=== PATIENT | male | born 1950 | race Caucasian/White ===

== ENCOUNTER 2016-09-27 08:43 | Day surgery (SDC) | payer BC, MEDICARE ==
[2016-09-26 10:18] VITALS: BMI 33.4
[~2016-09-27 08:43] MED LIST: LACTATED RINGERS 1,000 ML IV SCH; LIDOCAINE 1% 20 ML VIAL (10MG/ML) FOR IV START INTRADERMA PRN
[2016-09-27 09:01] VITALS: RESP 16; TEMP 97.3
[2016-09-27] MEDS ORDERED: LIDOCAINE 1% INJ 10MG/ML (20 ML MDV) ONE (10:13)
[2016-09-27] MEDS ORDERED: PROPOFOL 10 MG/ML 20 ML VIAL IV ONE (10:13)
--- NOTE | 2016-09-27 10:47 | P.PCN ---
Date of Procedure: 09/27/16 Preoperative Diagnosis: Postoperative Diagnosis: Procedure(s) Performed: Procedure: Colonoscopy and biopsy. Preoperative diagnosis: History of colon cancer and elevated CEA. Postoperative diagnosis: 1. Prominence and some friability at the area of the anastomosis on the right side, unlikely to be neoplastic, biopsies obtained. 2. Low-grade internal hemorrhoids, otherwise, exam within normal limits. Preparation: HalfLytely prep. Sedation: Was provided by anesthesia. Brief clinical history: The patient is a 66-year-old male who was diagnosed in May 2015 with adenocarcinoma of the cecum. He underwent right colectomy and completed chemotherapy. The patient was noted to have slight elevation in his CEA on her recent follow-up exam. This would be his first colonoscopy since surgery last year. Procedure: With the patient on his left lateral decubitus position and after informed consent and adequate sedation, the perianal area was inspected and it did not show any fissures or fistulas. There were no masses felt on digital rectal examination. The Olympus CFQ 160L video colonoscope was then inserted in the rectum in the usual fashion and advanced to the right colon. The area of the anastomosis was noted. There was some prominence and friability at the area of the anastomosis, unlikely to be neoplastic, however, I obtained multiple biopsies. Elsewhere, the mucosa appeared healthy. No polyps or tumors were seen or any obvious diverticular disease. I retroflexed thre endoscope in the rectum before the endoscope was withdrawn. Low-grade internal hemorrhoids were noted but there was no bleeding. The patient tolerated the procedure well. Plan: The patient was reassured. Discussed dietary measures and local care for hemorrhoids. Will await biopsy results and make further plans based on his course and biopsy results. He will follow up with you as planned. Implants: Indications for Procedure: Operative Findings: Description of Procedure:
[2016-09-27 10:59] VITALS: BP 147/70; PULSE 54
== END 2016-09-27 11:26 | disposition home or self-care (01) ==
LOC: ORWHC2ENDO 08:43
DX: K52.9 Noninfective gastroenteritis and colitis, unspecified (principal); Z98.0 Intestinal bypass and anastomosis status; Z85.038 Personal history of other malignant neoplasm of large intestine; I10 Essential (primary) hypertension; E78.5 Hyperlipidemia, unspecified; J45.909 Unspecified asthma, uncomplicated; K21.9 Gastro-esophageal reflux disease without esophagitis; Z79.899 Other long term (current) drug therapy; K64.8 Other hemorrhoids
CPT/HCPCS: 88305; 45380; J2001; J2704; 83735

== ENCOUNTER → 2016-10-13 | Outpatient (CLI) | payer MEDICARE ==
--- NOTE | 2016-10-14 11:47 | PE ---
EXAMINATION TYPE: PET CT fusion skull to thigh DATE OF EXAM: 10/13/2016 COMPARISON: CT abdomen pelvis 03/07/2016 Prior PET/CT: 06/25/2015 HISTORY: Colon cancer TECHNIQUE: Following the intravenous administration of 14.55 mCi of F-18 FDG, whole body images are performed from the skull base to the midthigh. Images are reviewed on the computer in the coronal, a xial, and sagittal planes. Reconstructed rotating images are created on independent workstation and reviewed on the computer. A localization and attenuation correction CT is performed in conjunction with the PET scan. DLP: 505.6 mGycm SCAN: Follow-up Blood glucose: 88 mg/dL Average Mediastinum SUV: 1.9 to Average Liver SUV: 2.5 FINDINGS: NECK: No abnormal uptake THORAX: No abnormal uptake ABDOMEN: There is interval development of numerous abnormal areas of uptake within the left and right lobes liver. SUV values range from 5-7 are compatible with multiple metastatic lesions. Some subtle uptake within the celiac axis lymph node has an SUV value of 3.3 suspicious for metastatic lesion. PELVIS: Some intense uptake appears to be within the right hemipelvis near the expected region of the anastomosis. This has an SUV value of 6.5. Recurrent mass at this level is not excluded. OSSEOUS STRUCTURES: No abnormal uptake LOCALIZATION CT: Large cyst extends from the inferior pole right kidney measuring 7.2 cm. The ascendi ng thoracic aorta at the level of main pulmonary artery is 3.9 cm patent main pulmonary artery at the bifurcation is 3.0 cm. Coronary artery calcifications present. Small shotty lymph nodes within the m ediastinum. Gallstones are present. COMPARISON: Liver metastasis appears to been interval development. The mass of the resected cecal reg ion appears to be recurrent. Solitary right kidney appears stable. IMPRESSION: 1. Interval development of multiple hepatic metastases within the left and right lobes liver. 2. There may be recurrent mass at the level of the anastomosis in the region of the resected cecum.
== END | disposition home or self-care (01) ==
LOC: RADPETMAIN 10:00
PROVIDERS: ATTEND Internal Medicine Hematology & Oncology
DX: C78.7 Secondary malignant neoplasm of liver and intrahepatic bile duct (principal)
CPT/HCPCS: 78815; A9552

== ENCOUNTER → 2018-08-07 | Outpatient (CLI) | payer MEDICARE ==
--- NOTE | 2018-08-07 10:49 | XR ---
EXAMINATION TYPE: XR abdomen complete w decub DATE OF EXAM: 08/07/2018 COMPARISON: None INDICATION: Lower abdominal pain, history of colon cancer and liver cancer TECHNIQUE: Acute abdominal series is performed with an upright view. Additional supine views were obt ained. A left lateral decubitus view is obtained. FINDINGS: There is a normal bowel gas pattern. Psoas margins are normal. No organomegaly is present. No suspicious air-fluid levels or differential air-fluid levels are present. No free air is evident. Osseous structures appear unremarkable. Phleboliths are within the pelvis. IMPRESSION: 1. Unremarkable acute abdominal series.
== END | disposition home or self-care (01) ==
LOC: RADXRMAIN 09:50
PROVIDERS: ATTEND Registered Nurse Oncology
DX: C18.2 Malignant neoplasm of ascending colon (principal); G62.0 Drug-induced polyneuropathy; E86.0 Dehydration; R19.7 Diarrhea, unspecified
CPT/HCPCS: 74021; 80053; 85025

== ENCOUNTER 2018-08-27 08:55 | Inpatient (IN) | payer MEDICARE ==
[2018-08-27 09:51] VITALS: RESP 16
[2018-08-27 10:00] VITALS: BMI 27.3
[2018-08-27] MEDS ORDERED: CALCIUM CARBONATE 500 MG CHEWABLE PO PRN (10:25)
[2018-08-27] MEDS ORDERED: ALBUTEROL NEBULIZED 2.5 MG/3 ML INHALATION PRN (10:25)
[2018-08-27] MEDS ORDERED: ONDANSETRON 4 MG/2 ML VIAL IVP PRN (10:31)
[2018-08-27] MEDS ORDERED: LIDOCAINE 4% CREAM 5 GM TUBE TOPICAL ONE (10:53)
[2018-08-27] MEDS: SODIUM CHLORIDE 0.9% 1,000 ML IV SCH ×2 (11:22→20:44)
[2018-08-27] MEDS: MORPHINE SULFATE 2 MG/ML SYRINGE IVP PRN ×2 (11:44→19:04)
[2018-08-27 12:49] LABS: Albumin 2.5 g/dL (3.5-5.0); Calcium 7.7 mg/dL (8.4-10.2); Magnesium 1.5 mg/dL (1.6-2.3); Potassium 3.7 mmol/L (3.5-5.1); Total Bilirubin 0.5 mg/dL (0.2-1.3); Total Protein 5.4 g/dL (6.3-8.2)
--- NOTE | 2018-08-27 15:06 | P.HPIM ---
History of Present Illness H&P Date: 08/27/18 Chief Complaint: End stage metastatic prostate adenocarcinoma, admit for symptom mgmt Pt has a history of colon adenocarcinoma diagnosed in 2009, treated with resection and adjuvant chemo, in 2016 he was found to have liver mets, chemo regimen was changed and intent became palliative. He remained on treatment and stable until just a few mo ago. His treatment was changed and he has not been well since, he is not tolerating and his PS has deteriorated rapidly in the last several weeks. He and his met with Dr. Kaba today, they have decided to proceed with hospice care. He is admitted for intractable pain of malignancy. Plan is transition home with hospice. Review of Systems 14 point ROS is negative except as stated in HPI Past Medical History Past Medical History: Asthma, Cancer, GERD/Reflux, GI Bleed, Hearing Disorder / Deafness, Hyperlipidemia, Hypertension Additional Past Medical History / Comment(s): 2016 lower GI bleed/colon cancer with resection and 12 chemo treatments, mets to liver and received more chemo and stivarga-pt unable to tolerate and last dose was 08/07/18, WPW syndrome, palpitations, one atrophied kidney/chronic renal failure, gout multiple joints, DJD, occasional back pain/spurs, [place] bilaterally-has hearing aides, constipation. History of Any Multi-Drug Resistant Organisms: None Reported Past Surgical History: Bowel Resection, Orthopedic Surgery Additional Past Surgical History / Comment(s): Colonoscopies with bxs, 06/2015 colon resection, R knee athroscopy. Past Anesthesia/Blood Transfusion Reactions: No Reported Reaction Past Psychological History: No Psychological Hx Reported Smoking Status: Never smoker Past Alcohol Use History: None Reported Past Drug Use History: None Reported - Past Family History Father Family Medical History: Cancer Additional Family Medical History / Comment(s): at age 49 from lymphoma Mother Family Medical History: Cancer Additional Family Medical History / Comment(s): breast cancer at age 70 Medications and Allergies Home Medications Medication Instructions Recorded Confirmed Type Fenofibrate,Micronized 134 mg PO DAILY 09/07/14 08/27/18 History [Fenofibrate] Losartan Potassium 100 mg PO DAILY 09/07/14 08/27/18 History Montelukast [Singulair] 10 mg PO HS 09/07/14 08/27/18 History Albuterol Inhaler [Ventolin Hfa 1 - 2 puff INHALATION RT-Q6H PRN 06/03/15 08/27/18 History Inhaler] Verapamil HCl [Verelan Pm] 100 mg PO HS 06/03/15 08/27/18 History B Complex-Vit C-Vit E-Zinc [Z-Bec] 1 tab PO DAILY 09/26/16 08/27/18 History Magnesium Oxide [Mag-Ox] 400 mg PO DAILY 09/26/16 08/27/18 History hydrALAZINE HCL [Apresoline] 50 mg PO TID 09/26/16 08/27/18 History Allopurinol [Zyloprim] 100 mg PO DAILY 08/27/18 08/27/18 History Diphenoxylate HCl/Atropine 1 tab PO Q6HR PRN 08/27/18 08/27/18 History [Lomotil 2.5-0.025 mg Tablet] Ergocalciferol (Vitamin D2) 50,000 unit PO HUFF 08/27/18 08/27/18 History [Drisdol] Gabapentin [Neurontin] 300 mg PO BID 08/27/18 08/27/18 History Allergies Allergy/AdvReac Type Severity Reaction Status Date / Time No Known Allergies Allergy Verified 08/27/18 10:27 Physical Exam Vitals: Vital Signs Temp Pulse Resp BP Pulse Ox 08/27/18 12:10 98.4 F 74 16 122/69 96 08/27/18 09:50 98.1 F 85 16 143/68 95 Intake and Output 08/26/18 08/27/18 08/27/18 22:59 06:59 14:59 Other: Weight 86.6 kg WDWN, male, normocephalic, atraumatic, aniceric sclera, oral mucosa reddened, no thrush, laying in bed, mild distress, A&Ox4, respirations unlabored, skin warm and dry, both thumbs have healing blisters, skin peeling (PPE from treatment), no rash or open lesions, radial pulse is 2+. Results CBC & Chem 7: 08/27/18 11:30 Labs: Abnormal Lab Results - Last 24 Hours (Table) 08/27/18 Range/Units 11:30 Chloride 111 H (98-107) mmol/L Carbon Dioxide 20 L (22-30) mmol/L BUN 25 H (9-20) mg/dL Calcium 7.7 L (8.4-10.2) mg/dL Magnesium 1.5 L (1.6-2.3) mg/dL Total Protein 5.4 L (6.3-8.2) g/dL Albumin 2.5 L (3.5-5.0) g/dL Thrombosis Risk Factor Assmnt - Choose All That Apply Any of the Below Risk Factors Present?: Yes Other Risk Factors: Yes Each Risk Factor Represents 2 Points: Age 61-74 years, Malignancy Other congenital or acquired thrombophilia - If yes, enter type in comment: No Thrombosis Risk Factor Assessment Total Risk Factor Score: 4 Thrombosis Risk Factor Assessment Level: Moderate Risk Assessment and Plan (1) Admission for hospice care Current Visit: Yes Status: Acute Priority: High Code(s): Z51.5 - ENCOUNTER FOR PALLIATIVE CARE SNOMED Code(s): 072640733 (2) Pain of metastatic malignancy Current Visit: Yes Status: Acute Priority: High Code(s): G89.3 - NEOPLASM RELATED PAIN (ACUTE) (CHRONIC) SNOMED Code(s): 803051959 (3) Colon cancer Current Visit: Yes Status: Chronic Priority: High Code(s): C18.9 - MALIGNANT NEOPLASM OF COLON, UNSPECIFIED SNOMED Code(s): 649436732 (4) Metastasis Current Visit: Yes Status: Chronic Priority: High Code(s): C79.9 - SECONDARY MALIGNANT NEOPLASM OF UNSPECIFIED SITE SNOMED Code(s): 742766681 Plan: Pt is admitted for symptom management and transition to hospice. I spoke with pt and , they feel they want to have hospice at home. I have contacted Case Mgmt to meet with them to discuss ooptions so that they can choose what is best for them. Pain currently managed DC to hospice of pt/family choice once care is in place
[2018-08-27] MEDS: hydrALAZINE HCL 50 MG TAB PO SCH ×2 (15:33→22:17)
[2018-08-27] MEDS: MAGNESIUM SULFATE-D5W PMX 1 GM in DEXTROSE/WATER 1 100ML.BAG IVPB SCH ×2 (15:33→16:32)
[2018-08-27] MEDS: MONTELUKAST 10 MG TAB PO SCH (22:17)
[2018-08-27] MEDS: GABAPENTIN 300 MG CAP PO SCH (22:17)
[2018-08-27] MEDS: VERAPAMIL SR 120 MG TABLET.ER PO SCH (22:17)
[2018-08-28] MEDS: MORPHINE SULFATE 2 MG/ML SYRINGE IVP PRN ×4 (02:23→21:42)
[2018-08-28] MEDS: SODIUM CHLORIDE 0.9% 1,000 ML IV SCH ×2 (06:10→08:33)
[2018-08-28] MEDS: MAGNESIUM OXIDE 400 MG TAB PO SCH (08:32)
[2018-08-28] MEDS: hydrALAZINE HCL 50 MG TAB PO SCH ×3 (08:32→20:59)
[2018-08-28] MEDS: GABAPENTIN 300 MG CAP PO SCH ×2 (08:32→20:59)
[2018-08-28] MEDS: ALLOPURINOL 100 MG TAB PO SCH (08:32)
[2018-08-28] MEDS: LOSARTAN 50 MG TAB PO SCH (08:32)
[2018-08-28] MEDS ORDERED: NON-FORMULARY DRUG (B Complex-Vit C-Vit E-Zinc 1 TAB) PO SCH (09:00)
--- NOTE | 2018-08-28 13:35 | P.PN ---
Subjective Progress Note Date: 08/28/18 Principal diagnosis: Metastatic colon cancer, Admit for symptom management, plan to discharge home with hospice In follow-up today patient is in much better spirits, his pain appears to be much better controlled, he is enjoying the company of his and daughter at the bedside. Objective - Vital Signs Vital signs: Vital Signs Temp 97.6 F 08/28/18 12:43 Pulse 68 08/28/18 12:43 Resp 16 08/28/18 12:43 BP 119/65 08/28/18 12:43 Pulse Ox 96 08/28/18 12:43 Intake & Output 08/27/18 08/28/18 08/28/18 18:59 06:59 18:59 Intake Total 1180 Balance 1180 Weight 86.6 kg 86.6 kg Intake: Oral 1180 Other: Voiding Method Toilet Toilet Toilet # Voids 0 1 - Exam Well-developed, well-nourished male sitting up in bed, no acute distress, alert and oriented 4, respirations are even and unlabored - Labs CBC & Chem 7: 08/27/18 11:30 Assessment and Plan (1) Admission for hospice care Current Visit: Yes Status: Acute Priority: High Code(s): Z51.5 - ENCOUNTER FOR PALLIATIVE CARE SNOMED Code(s): 923686816 (2) Pain of metastatic malignancy Current Visit: Yes Status: Acute Priority: High Code(s): G89.3 - NEOPLASM RELATED PAIN (ACUTE) (CHRONIC) SNOMED Code(s): 768304678 (3) Colon cancer Current Visit: Yes Status: Chronic Priority: High Code(s): C18.9 - MALIGNANT NEOPLASM OF COLON, UNSPECIFIED SNOMED Code(s): 797661436 (4) Metastasis Current Visit: Yes Status: Chronic Priority: High Code(s): C79.9 - SECONDARY MALIGNANT NEOPLASM OF UNSPECIFIED SITE SNOMED Code(s): 486986615 Plan: Pt is admitted for symptom management and transition to hospice. I spoke with pt and , they feel they want to have hospice at home, pending meeting with daughter hospice today. Pain managed DC to hospice of pt/family choice once care is in place
--- NOTE | 2018-08-28 15:00 | P.DS ---
Providers Date of admission: 08/27/18 09:17 Expected date of discharge: 08/28/18 Attending physician: Guero Kaba Consults: [facility] Primary care physician: Jose Maria Nash - Discharge Diagnosis(es) (1) Admission for hospice care Current Visit: Yes Status: Acute Priority: High (2) Pain of metastatic malignancy Current Visit: Yes Status: Acute Priority: High (3) Colon cancer Current Visit: Yes Status: Chronic Priority: High (4) Metastasis Current Visit: Yes Status: Chronic Priority: High Hospital Course: Admitted for symptoms and intractable pain from metastatic colon malignancy. Hospice consulted, pt ready for discharge Pertinent Studies: none Procedures: none Patient Condition at Discharge: Poor Plan - Discharge Summary Discharge Rx Participant: No New Discharge Prescriptions: New LORazepam [Ativan] 1 mg PO Q4H PRN 3 Days #9 tab PRN Reason: Anxiety MORPHINE ORAL JUANITO CONC 20mg/mL [Roxanol Oral Soln Conc 20MG/ML] 5 mg PO Q3HR PRN 3 Days #18 ml PRN Reason: Pain No Action Montelukast [Singulair] 10 mg PO HS Losartan Potassium 100 mg PO DAILY Fenofibrate,Micronized [Fenofibrate] 134 mg PO DAILY Verapamil HCl [Verelan Pm] 100 mg PO HS Albuterol Inhaler [Ventolin Hfa Inhaler] 1 - 2 puff INHALATION RT-Q6H PRN PRN Reason: Shortness Of Breath B Complex-Vit C-Vit E-Zinc [Z-Bec] 1 tab PO DAILY Magnesium Oxide [Mag-Ox] 400 mg PO DAILY hydrALAZINE HCL [Apresoline] 50 mg PO TID Diphenoxylate HCl/Atropine [Lomotil 2.5-0.025 mg Tablet] 1 tab PO Q6HR PRN PRN Reason: Diarrhea Gabapentin [Neurontin] 300 mg PO BID Allopurinol [Zyloprim] 100 mg PO DAILY Ergocalciferol (Vitamin D2) [Drisdol] 50,000 unit PO HUFF Discharge Medication List Fenofibrate,Micronized [Fenofibrate] 134 mg PO DAILY 09/07/14 [History] Losartan Potassium 100 mg PO DAILY 09/07/14 [History] Montelukast [Singulair] 10 mg PO HS 09/07/14 [History] Albuterol Inhaler [Ventolin Hfa Inhaler] 1 - 2 puff INHALATION RT-Q6H PRN 06/03/15 [History] Verapamil HCl [Verelan Pm] 100 mg PO HS 06/03/15 [History] B Complex-Vit C-Vit E-Zinc [Z-Bec] 1 tab PO DAILY 09/26/16 [History] Magnesium Oxide [Mag-Ox] 400 mg PO DAILY 09/26/16 [History] hydrALAZINE HCL [Apresoline] 50 mg PO TID 09/26/16 [History] Allopurinol [Zyloprim] 100 mg PO DAILY 08/27/18 [History] Diphenoxylate HCl/Atropine [Lomotil 2.5-0.025 mg Tablet] 1 tab PO Q6HR PRN 08/27/18 [History] Ergocalciferol (Vitamin D2) [Drisdol] 50,000 unit PO HUFF 08/27/18 [History] Gabapentin [Neurontin] 300 mg PO BID 08/27/18 [History] LORazepam [Ativan] 1 mg PO Q4H PRN 3 Days #9 tab 08/28/18 [Rx] MORPHINE ORAL JUANITO CONC 20mg/mL [Roxanol Oral Soln Conc 20MG/ML] 5 mg PO Q3HR PRN 3 Days #18 ml 08/28/18 [Rx] Discharge Disposition: HOME WITH HOSPICE
[2018-08-28] MEDS: VERAPAMIL SR 120 MG TABLET.ER PO SCH (20:59)
[2018-08-28] MEDS: MONTELUKAST 10 MG TAB PO SCH (20:59)
[2018-08-28 22:36] VITALS: TEMP 97.9
[2018-08-29] MEDS: SODIUM CHLORIDE 0.9% 1,000 ML IV SCH (03:43)
[2018-08-29 05:53] VITALS: BP 115/57; PULSE 62
[2018-08-29] MEDS: MAGNESIUM OXIDE 400 MG TAB PO SCH (08:13)
[2018-08-29] MEDS: GABAPENTIN 300 MG CAP PO SCH (08:13)
[2018-08-29] MEDS: ALLOPURINOL 100 MG TAB PO SCH (08:14)
[2018-08-29] MEDS: LOSARTAN 50 MG TAB PO SCH (08:14)
[2018-08-29] MEDS: hydrALAZINE HCL 50 MG TAB PO SCH (08:14)
[2018-08-29] MEDS: MORPHINE SULFATE 2 MG/ML SYRINGE IVP PRN (08:17)
--- NOTE | 2018-08-29 09:45 | P.PN ---
Progress Note - Text Progress Note Date: 08/29/18 Discharge delayed due to no hospice nurse available to meet with pt at home yesterday. Discharge report remains the same, pt to be discharged as soon as hospice and hospice nursing in place.
== END 2018-08-29 10:36 | disposition hospice, home (50) | DRG 948 ==
LOC: 3NMEDONC 09:17
PROVIDERS: ADMIT Internal Medicine Hematology & Oncology; ATTEND Internal Medicine Hematology & Oncology
DX: G89.3 Neoplasm related pain (acute) (chronic) (principal); C78.7 Secondary malignant neoplasm of liver and intrahepatic bile duct; C78.5 Secondary malignant neoplasm of large intestine and rectum; C61 Malignant neoplasm of prostate; E78.5 Hyperlipidemia, unspecified; H91.90 Unspecified hearing loss, unspecified ear; I10 Essential (primary) hypertension; J45.909 Unspecified asthma, uncomplicated; K21.9 Gastro-esophageal reflux disease without esophagitis; M10.9 Gout, unspecified; M15.9 Polyosteoarthritis, unspecified; I45.6 Pre-excitation syndrome; Z51.5 Encounter for palliative care; Z79.899 Other long term (current) drug therapy; Z90.49 Acquired absence of other specified parts of digestive tract; Z92.21 Personal history of antineoplastic chemotherapy; Z80.3 Family history of malignant neoplasm of breast; Z80.7 Family history of other malignant neoplasms of lymphoid, hematopoietic and related tissues
CPT/HCPCS: 80053; 83735